=== PATIENT | female | born 1955 | race Caucasian/White ===

== ENCOUNTER → 2024-05-08 | Outpatient (CLI) | payer MEDICARE, BC ==
[2024-05-08 14:07] LABS: INR 0.9 (<1.2); Partial Thromboplastin Time 24.6 sec (22.0-30.0); Prothrombin Time 10.3 sec (10.0-12.5)
[2024-05-08 18:06] LABS: HCT 44.1 % (37.2-46.3); HGB 15.5 g/dL (12.0-15.0); MCH 30.7 pg (27.0-32.0); MCHC 35.1 g/dL (32.0-37.0); MCV 87.3 FL (80.0-97.0); Mean Platelet Volume 10.5 FL (9.5-12.2); NRBC Per 100 WBC 0 X 10*3/uL (0.00-0.01); Platelet Count 278 X 10*3/uL (140-440); RBC 5.05 X 10*6/uL (4.10-5.20); RDW 12.7 % (11.5-14.5); WBC 5.81 X 10*3/uL (4.50-10.00)
[2024-05-08 18:35] LABS: ALT 29 U/L (8-44); AST 26 U/L (13-35); Albumin/Globulin Ratio 2.17 Ratio (1.60-3.17); Alkaline Phosphatase 88 U/L (41-126); Calcium 10.7 mg/dL (8.7-10.3); Chloride 103 mmol/L (96-109); Globulin 2.3 g/dL (1.6-3.3); Glucose 126 mg/dL (70-110); Potassium 3.7 mmol/L (3.5-5.5); Sodium 142 mmol/L (135-145); Total Bilirubin 0.6 mg/dL (0.3-1.2); Total Protein 7.3 g/dL (6.2-8.2)
== END | disposition home or self-care (01) ==
LOC: LABPAT 12:55
PROVIDERS: ATTEND Orthopaedic Surgery
DX: Z01.818 Encounter for other preprocedural examination (principal); Z22.322 Carrier or suspected carrier of Methicillin resistant Staphylococcus aureus
CPT/HCPCS: 80053; 85027; 85610; 85730; 87070; 93005

== ENCOUNTER 2024-05-20 05:42 | Day surgery (SDC) | payer MEDICARE, BC ==
[~2024-05-20 05:42] MED LIST: HYDROmorphone 0.5 MG/0.5 ML SYRINGE IVP PRN; LIDOCAINE 1% (10MG/ML) FOR IV START INTRADERMA PRN; ONDANSETRON 4 MG/2 ML VIAL IVP PRN; TRANEXAMIC 1,000 MG/100ML-NACL 1,000 MG in SALINE 1 100ML.BAG IVPB PRN
[2024-05-20] MEDS: IV FLUID CONTINUATION 1,000 ML IV ONE ×2 (05:52→09:10)
[2024-05-20] MEDS: ACETAMINOPHEN TAB 500 MG TAB PO PRN (06:21)
[2024-05-20] MEDS: GABAPENTIN 300 MG CAP PO PRN (06:21)
[2024-05-20] MEDS: MELOXICAM 7.5 MG TAB PO PRN (06:21)
[2024-05-20] MEDS: DEXAMETHASONE SOD PHOSPHATE 4 MG/ML 1 ML VIAL IV ONE (06:22)
[2024-05-20] MEDS: ONDANSETRON 4 MG/2 ML VIAL IVP ONE (06:22)
[2024-05-20 06:24] LABS: Glucose,Whole Blood 148 mg/dL (70-110)
[2024-05-20] MEDS: LACTATED RINGERS 1,000 ML IV SCH (06:24)
[2024-05-20] MEDS: MIDAZOLAM 2 MG/2 ML VIAL IVP ONE (06:33)
[2024-05-20] MEDS ORDERED: TRANEXAMIC 1,000 MG/100ML-NACL PREMIX BAG ONE (06:53)
[2024-05-20] MEDS ORDERED: fentaNYL (PF) 50 MCG/ML 2 ML AMP ONE (06:53)
[2024-05-20] MEDS ORDERED: DEXAMETHASONE SOD PHOSPHATE 4 MG/ML 1 ML VIAL ONE (06:53)
[2024-05-20] MEDS ORDERED: PROPOFOL 10 MG/ML 20 ML VIAL IV ONE (06:53)
[2024-05-20] MEDS ORDERED: ROPIVACAINE 5 MG/ML 30 ML VIAL ONE (06:53)
[2024-05-20] MEDS ORDERED: PHENYLEPHRINE 10 MG/ML VIAL ONE (06:53)
[2024-05-20] MEDS ORDERED: MIDAZOLAM 2 MG/2 ML VIAL ONE (06:53)
[2024-05-20] MEDS: ceFAZolin 1,000 MG in SODIUM CHLORIDE 0.9% 1,000 ML IRRIGATION ONE (06:58)
--- NOTE | 2024-05-20 08:09 | P.OP ---
Date of Procedure: 05/20/24 Preoperative Diagnosis: Severe osteoarthritis right knee Postoperative Diagnosis: Severe osteoarthritis right knee Procedure(s) Performed: Right total knee arthroplasty Implants: Nelson & Nephew Journey II CR Oxinium cruciate retaining femoral component size 5, right Nelson [employer] Nephew Journey nonporous tibial baseplate size 3, right Nelson [employer] Nephew Journey II, XLPE Deep Dished articular insert, size 13 mm, Size 2-3, right Nelson [employer] Nephew Journey Mónica II resurfacing patellar component, oval, 29 mm All components were cemented using Palacos R bone cement The articulation is Oxinium on polyethylene Anesthesia: spinal Surgeon: Mike Carrington Thai Masseur #1: Abimbola Joseph Estimated Blood Loss (ml): 50 Pathology: none sent Condition: stable Disposition: PACU Indications for Procedure: The patient's knee is end-stage, and conservative management has failed. The operation of knee replacement has been discussed at length in the office, as well as potential risks and complications. These are inclusive of, but not limited to: Infection, bleeding, scarring, discomfort, stiffness, blood vessel and nerve damage, need for further surgery, failure to relieve symptoms, persistence, recurrence, or worsening of problems, loosening, dislocation, wear, blood clot, pulmonary embolism, , gait dysfunction, stiffness, and other risks as discussed in the office. Patient elects to proceed and the consent form has been signed. Operative Findings: The operative findings are consistent with severe osteoarthritis of the right knee Description of Procedure: The patient was seen in the preoperative area, the consent was reviewed and the operative site was marked with a skin marker. The patient verified the procedure and the operative site. An adductor canal pain catheter and an iPACK block were placed by anesthesia in the preoperative area. The patient was then brought to the operating room and positioned on the operating room table in the supine position. Preoperative antibiotics and a gram of tranexamic acid were given intravenously. A spinal anesthetic was administered by the anesthesia department. Care was taken to make sure that all pressure points were adequately padded. A tourniquet was placed on the upper thigh and the lower extremity was prepped with ChloraPrep and draped in usual sterile fashion. A universal time-out was then performed which confirmed the patient's name, surgical site, ALLERGIES, and consent. The lower extremity was then exsanguinated and tourniquet was inflated to 250 mmHg. A standard anterior midline approach to the knee was performed. The skin and subcutaneous tissue were sharply dissected down to the patellar tendon. A medial parapatellar arthrotomy was then performed. The knee was then extended, the patellar was everted, and the knee was flexed. The infra-patellar fat pad was removed in order to enhance exposure. The anterior horns of both menisci were excised, and a release was performed to the posterior medial aspect of the knee. On gross visual inspection, there was complete loss of articular cartilage in the medial and patellofemoral joint spaces. There was also significant cartilage damage in the lateral compartment. There were multiple periarticular osteophytes globally about the knee which were then removed with a Ronguer. The femoral canal was then opened with the 9.5 mm intramedullary drill. The 8 mm intramedullary marifer was then inserted into the femoral canal with the distal femoral cutting guide set for 5 of valgus. The distal femoral cutting block was then pinned in place. The intramedullary marifer was then removed, and the distal femur was then cut. The cutting block was then removed and the cut was checked for symmetry. The resected bone was then measured to confirm the appropriate distal femoral resection. Next, the sizing guide was then placed and set for 3 external rotation based off of the epicondylar axis and Republic's line. Pins were then placed and the drill holes, and the femur was sized with the sizing stylus. The pins were then removed, and the sizing guide was then removed. The spikes of the appropriate size femoral block was then placed into the predrilled holes, and malleted into place. Two 45 mm pins were then placed into the fixation holes on the cutting block. An kimberlee wing was then used to ensure there would be no notching with the anterior cut. The anterior condyles were cut without notching. The anterior chord cut was then performed, followed by the posterior cut, posterior chamfer cut, and the anterior chamfer cut. The collateral ligaments were protected during the entire process. The cutting block was then removed. Any remaining bone and osteophytes were removed from the femur with a Ronguer. Attention was then directed to the tibia. The remaining ACL was removed with a Ronguer, and the tibia was then gently subluxed forward with a large bent knee retractor. Any remaining menisci were excised. The posterior lateral corner was cauterized in order to coagulate the lateral geniculate artery. The extra medullary tibial cutting guide was then placed, set for the appropriate rotation, slope, and depth of resection. The proximal tibia cutting guide was then pinned in place. Proximal tibia was then cut and sized. A curved osteotome was then used to remove any posterior osteophytes from the distal femur. The femoral trial was placed. A narrow saw blade was then used to remove the anterior intracondylar femoral bone. The CR notch trial was then placed. The tibial trial was placed with the appropriate-sized insert. The knee was able to fully extend and flex to 130 and was stable throughout all range of motion. The knee was then extended and the patella was everted. Patella was then measured, and then using an osteotomy guide, the patella was cut at the appropriate level. The patellar component was sized. The patellar drill guide was placed and the patella was drilled. The patella trial was then placed. The knee was then taken through range of motion with the patella trial and the patella tracked normally using the no thumbs technique. The patella trial was then removed. The knee was then flexed and lug holes were drilled through the femoral trial and the femoral trial was then removed. The tibial was then re- exposed, and the tibial broach guide was then pinned in place after it was set for the appropriate rotation to allow for the most coverage without overhang. The tibia was then reamed and broached. The femoral canal was plugged with autologous bone. The cut surfaces of bone were then irrigated with pulsatile lavage. The knee was also irrigated with Irrisept solution. The components were then opened, the cement was mixed. Cement was placed on the backside of the femoral, tibial, and patellar components. Cement was then applied to the tibial surface and pressurized into the surface using finger pressurization technique. The tibial component was then applied and excess cement was removed after it was impacted securely noted to be flush with the cut surface. In similar fashion, the cement was applied to the cut femoral surface, pressurized and using finger pressurization the component was impacted in place. Excess cement was removed. The polyethylene spacer was then implanted and locked into position. Patellar component was then applied in a similar technique and the patellar clamp was used to hold patella in place while the cement hardened. The knee was held in full extension while the cement hardened. Once the cement had fully hardened, the knee was reinspected. Any other cement extrusion was removed the final range of motion testing showed range of motion from 0-130 with excellent stability, both medial and laterally and appropriate alignment of the leg. Patella tracked normally. After the cemented hardened, the tourniquet was released and hemostasis was obtained. A second gram of transexamic acid was given intravenously. The knee was again irrigated. The knee was again taken through range of motion and found to be stable throughout all range of motion of 0-130, and the patella tracked normally. The fascia was then closed with 0 Vicryl followed by #2 strata fix suture. The subcutaneous tissue was closed with 3-0 Vicryl and 3-0 strata fix. Exofin glue was used for the skin and placed with the knee in flexion. After the glue had dried, and Optafoam silver impregnated dressing was applied. A lightly compressive dressing was applied using web roll and Ray wrap. Patient was then transferred to the stretcher and taken to recovery room in stable condition. Sponge and needle counts were correct. The assistant football coach BRANDI Beaulieu was required due the complexity surgery and the need for a skilled surgical rn. She assisted in positioning, draping, retraction, and closure of the wound.
[2024-05-20] MEDS ORDERED: NA PHOS,M-B/NA PHOS,DI-BA 133 ML ENEMA RECTAL PRN (08:39)
[2024-05-20] MEDS ORDERED: NALOXONE 0.4 MG/ML 1 ML VIAL IV PRN (08:39)
[2024-05-20] MEDS ORDERED: ONDANSETRON 4 MG/2 ML VIAL IVP PRN (08:39)
[2024-05-20] MEDS ORDERED: HYDROmorphone 0.5 MG/0.5 ML SYRINGE IVP PRN ×2 (08:39)
[2024-05-20] MEDS ORDERED: MAGNESIUM HYDROXIDE 2,400 MG/30 ML CUP PO PRN (08:39)
[2024-05-20] MEDS ORDERED: bisacodyL 10 MG SUPP RECTAL PRN (08:39)
--- NOTE | 2024-05-20 09:11 | XR ---
EXAMINATION TYPE: XR knee limited RT DATE OF EXAM: 05/20/2024 CLINICAL HISTORY: Postoperative evaluation Two views of the right knee are submitted. Identified are changes of total knee arthroplasty with femoral and tibial components appearing well seated. Postsurgical soft tissue changes are noted. Alignment is anatomic.
[2024-05-20] MEDS: GLYCOPYRROLATE 0.2 MG/ML 2 ML VIAL IVP STA (09:12)
[2024-05-20] MEDS: ROPIVACAINE 1,100 MG, SODIUM CHLORIDE 0.9% 500 ML 330 ML, EMPTY PAIN BALL 1 EACH MISCELLANE PRN (09:14)
[2024-05-20] MEDS: HYDROmorphone 0.5 MG/0.5 ML SYRINGE IVP PRN (11:40)
--- NOTE | 2024-05-20 13:20 | P.ANPRN ---
Procedure Note - Anesthesia - Nerve Block Performed Right Adductor Canal Infusion Time Out Performed: Yes Date of Procedure: 05/20/24 Procedure Start Time: :32 Procedure Stop Time: :44 Location of Patient: PreOp Indication: Acute Post-Operative Pain, Requested by Surgeon Sedation Type: Sedate with meaningful contact maintained Preparation: Sterile Prep, Sterile Dressing Position: Supine Catheter: Indwelling Needle Types: Pajunk Needle Gauge: 21 Ultrasound used to visualize needle placement: Yes Ultrasound used to observe medication spread: Yes Blood Aspirated: No Pain Paresthesia on Injection Noted: No Resistance on Injection: Normal Image Stored and Saved: Yes Events: Uneventful and Well Tolerated (Ropivacaine 0.5% 20 cc plus dexamethasone 4 mg)
--- NOTE | 2024-05-20 13:21 | P.ANPRN ---
Procedure Note - Anesthesia - Nerve Block Performed Right Pujack Single Time Out Performed: Yes Date of Procedure: 05/20/24 Procedure Start Time: 06:45 Procedure Stop Time: 06:47 Location of Patient: PreOp (647) Indication: Acute Post-Operative Pain, Requested by Surgeon Sedation Type: Sedate with meaningful contact maintained Preparation: Sterile Prep Position: Supine Needle Types: Pajunk Needle Gauge: 21 Ultrasound used to visualize needle placement: Yes Ultrasound used to observe medication spread: Yes Blood Aspirated: No Pain Paresthesia on Injection Noted: No Resistance on Injection: Normal Image Stored and Saved: Yes Events: Uneventful and Well Tolerated (Ropivacaine 0.5% 25 cc plus dexamethasone 4 mg)
[2024-05-20] MEDS: SODIUM CHLORIDE 0.9% 1,000 ML IV SCH (14:47)
[2024-05-20] MEDS: HYDROcodone/APAP 7.5-325MG 1 EACH TAB PO PRN (16:21)
[2024-05-20 16:59] LABS: Glucose,Whole Blood 195 mg/dL (70-110)
[2024-05-20] MEDS ORDERED: CALCIUM CARBONATE 500 MG CHEWABLE PO PRN (17:12)
--- NOTE | 2024-05-20 17:12 | P.CONS ---
History of Present Illness - Reason for Consult Consult date: 05/20/24 Medical management Requesting physician: Mike Carrington - Chief Complaint Right knee surgery - History of Present Illness This is a pleasant 68-year-old patient who follows with Dr. Janelle Angel. Chronic stable medical conditions include diabetes, GERD, hypertension, rheumatoid arthritis. Patient is undergone right knee arthroplasty. Some pain at operative site. No nausea vomiting no chest pain. Review of systems: GEN.: None EYES: None HEENT: None NECK: None RESPIRATORY: None CARDIOVASCULAR: None GASTROINTESTINAL: Occasional constipation GENITOURINARY: None MUSCULOSKELETAL: [Joint pains LYMPHATICS: None HEMATOLOGICAL: None PSYCHIATRY: None NEUROLOGICAL: None Social history: Does not smoke. Alcohol rarely. Physical examination: VITAL SIGNS: 97.9, 75, 18, 130/76, 98% room air GENERAL: BMI 30.6,. Reclining in bed comfortable EYES: Pupils equal. Conjunctiva shelly l. HEENT: External appearance of nose and ears normal, oral cavity grossly normal. NECK: JVD not raised; masses not palpable. HEART: First and second heart sounds are normal; no edema. LUNGS: Respiratory rate normal; clear to auscultation. ABDOMEN: Soft, nontender, liver spleen not palpable, no masses palpable. PSYCH: Alert and oriented x3; mood and affect shelly l. MUSCULOSKELETAL:No Clubbing/cyanosis;muscles-grossly intact. Dressing over the right knee. Evidence of OA NEUROLOGICAL: Cranial nerves grossly intact; no facial asymmetry, power and sensation grossly intact. LYMPHATICS: No lymph nodes palpable in the axilla and neck INVESTIGATIONS, reviewed in the clinical context: May 08: White count 5.8 hemoglobin 15.5 platelets 278 potassium 3.7 BUN 12 creatinine 0.6 Assessment plan: -Right total knee arthroplasty Aspirin for DVT prophylaxis. IV cefazolin for infection prophylaxis pain control -GERD PPI -Rheumatoid arthritis Hydrochloric when -Essential hypertension Amlodipine 10 mg a day enalapril 10 mg a day -Primary osteoarthritis Pain control as needed Obesity BMI 30.6 Weight loss measures Care was discussed with patient. Questions answered. Thank Dr. Carrington Past Medical History Past Medical History: Diabetes Mellitus, GERD/Reflux, Hypertension, Osteoarthritis (OA), Rheumatoid Arthritis (RA) History of Any Multi-Drug Resistant Organisms: None Reported Past Surgical History: Breast Surgery, Cholecystectomy, Hysterectomy, Orthopedic Surgery Additional Past Surgical History / Comment(s): lft knee scope for bone chipped, biopsy lft breast Past Anesthesia/Blood Transfusion Reactions: No Reported Reaction Additional Psychological History / Comment(s): nervous about surgery Smoking Status: Never smoker Past Alcohol Use History: Rare Past Drug Use History: None Reported - Past Family History Sister(s) Family Medical History: Cancer Additional Family Medical History / Comment(s): breast Mother Family Medical History: Cancer Additional Family Medical History / Comment(s): outside of colon Medications and Allergies Home Medications Medication Instructions Recorded Confirmed Type Acetaminophen [Tylenol Arthritis] 650 - 1,300 mg PO BID 05/15/24 05/20/24 History Calcium Carbonate [Tums] 500 mg PO DAILY PRN 05/15/24 05/15/24 History Calcium Carbonate/Vitamin D3 1 each PO DAILY 05/15/24 05/15/24 History [Calcium 250-D Tablet] Empagliflozin [Jardiance] 10 mg PO DAILY 05/15/24 05/20/24 History Enalapril Maleate 10 mg PO DAILY 05/15/24 05/15/24 History Glucosimine (Unk) 1 tab PO DAILY 05/15/24 05/15/24 History Hydroxychloroquine Sulfate 200 mg PO Q48H 05/15/24 05/20/24 History Hydroxychloroquine Sulfate 400 mg PO Q48H 05/15/24 05/20/24 History L.acidoph,Paracasei, B.lactis 1 tab PO DAILY 05/15/24 05/15/24 History [Probiotic] Latanoprost Ophth [Xalatan 0.005%] 1 drop BOTH EYES HS 05/15/24 05/20/24 History Loratadine-Pseudoeph 10-240 mg 1 tab PO DAILY 05/15/24 05/20/24 History [Claritin-D 24 Hour] Multivitamins, Thera [Multivitamin 1 tab PO DAILY 05/15/24 05/15/24 History (formulary)] Omeprazole 20 mg PO DAILY 05/15/24 05/20/24 History Vit C(Unk) 1,000 mg PO DAILY 05/15/24 05/15/24 History amLODIPine BESYLATE 10 mg PO DAILY 05/15/24 05/15/24 History guaiFENesin-DM 600/30MG [Mucinex 1 tab PO DAILY 05/15/24 05/20/24 History Dm] Aspirin 325 mg PO BID #60 tab 05/20/24 Rx HYDROcodone/APAP 7.5-325MG [Shirley 1 - 2 tab PO Q6H PRN #32 tab 05/20/24 Rx 7.5-325] Sennosides [Senokot] 2 tab PO DAILY PRN #60 tablet 05/20/24 Rx Allergies Allergy/AdvReac Type Severity Reaction Status Date / Time Sulfa (Sulfonamide Allergy Rash/Hives Verified 05/20/24 05:58 Antibiotics) codeine AdvReac Vomiting Verified 05/20/24 05:58 Physical Exam Vitals: Vital Signs Temp Pulse Resp BP Pulse Ox 05/20/24 14:30 97.9 F 75 18 134/76 98 05/20/24 14:00 82 11 L 125/58 95 05/20/24 13:30 67 2 L 118/58 95 05/20/24 13:00 82 14 115/59 94 L 05/20/24 12:30 73 14 113/56 94 L 05/20/24 12:00 81 14 124/58 97 05/20/24 11:30 86 16 115/56 97 05/20/24 11:04 73 18 134/69 97 05/20/24 10:49 78 14 136/63 98 05/20/24 10:34 79 14 119/59 98 05/20/24 10:19 73 12 99 05/20/24 10:04 79 14 126/60 98 05/20/24 09:49 80 14 129/60 96 05/20/24 09:34 86 14 130/60 95 05/20/24 09:19 89 16 125/60 94 L 05/20/24 09:04 41 L 12 105/59 96 05/20/24 08:49 62 11 L 126/62 100 05/20/24 08:34 96.8 F L 72 12 131/67 97 05/20/24 06:50 75 18 136/63 96 05/20/24 06:03 98 F 87 18 161/75 100 Intake and Output 05/20/24 05/20/24 05/20/24 06:59 14:59 22:59 Intake Total 751 350 Output Total 200 Balance 751 150 Intake: IV 751 350 Output: Urine 150 Estimated Blood Loss 50 Other: Weight 71 kg 71 kg Results Labs: Abnormal Lab Results - Last 24 Hours (Table) 05/20/24 05/20/24 Range/Units 06:16 16:58 POC Glucose (mg/dL) 148 H 195 H (70-110) mg/dL
[2024-05-20 20:27] LABS: Glucose,Whole Blood 192 mg/dL (70-110)
[2024-05-20] MEDS: SENNOSIDES-DOCUSATE SODIUM 1 EACH TAB PO SCH (20:37)
[2024-05-20] MEDS: ASPIRIN 325 MG TAB PO SCH (20:37)
[2024-05-20] MEDS: LATANOPROST 0.005% OPHTH DROPS 2.5 ML BTL BOTH EYES SCH (20:42)
[2024-05-21 05:57] LABS: Glucose,Whole Blood 136 mg/dL (70-110)
[2024-05-21] MEDS: HYDROcodone/APAP 7.5-325MG 1 EACH TAB PO PRN (06:29)
--- NOTE | 2024-05-21 07:50 | P.PN ---
Progress Note - Text Progress Note Date: 05/21/24 Anesthesiology Postop day 1 status post total knee arthroplasty with adductor canal catheter. Patient doing well. VAS 4 out of 10. Gross strength intact in lower extremity. Afebrile. Denies alterations in sensorium. Catheter site intact. Heart regular rate Lungs nonlabored Abdomen nondistended Assessment: Postop day 1 status post total knee arthroplasty with adductor canal catheter Plan: 1.All questions answered. Maintain catheter 2 more days with patient removal at home. Instructions to be given at discharge. 2.This note was dictated using Vant[employer] software. Please be advised there is a potential for misspellings or errors in grid inspector.
[2024-05-21 07:51] VITALS: BP 151/73; PULSE 59; RESP 16; TEMP 98.1
[2024-05-21 08:28] LABS: Basophils # (A) 0.02 X 10*3/uL (0.00-0.10); Basophils % (A) 0.2 %; Eosinophils # (A) 0.01 X 10*3/uL (0.04-0.35); Eosinophils % (A) 0.1 %; Lymphocytes # (A) 1.17 X 10*3/uL (0.90-5.00); Lymphocytes % (A) 9.5 %; MCH 30.3 pg (27.0-32.0); MCHC 33.3 g/dL (32.0-37.0); MCV 90.9 FL (80.0-97.0); Monocytes # (A) 1.08 X 10*3/uL (0.20-1.00); Monocytes % (A) 8.8 %; NRBC Per 100 WBC 0 X 10*3/uL (0.00-0.01); Neutrophils # (A) 9.95 X 10*3/uL (1.80-7.70); Neutrophils % (A) 80.8 %; Platelet Count 275 X 10*3/uL (140-440); RBC 3.96 X 10*6/uL (4.10-5.20); RDW 12.5 % (11.5-14.5)
[2024-05-21] MEDS: MULTIVITAMINS, THERA 1 EACH TAB PO SCH (08:49)
[2024-05-21] MEDS: DAPAGLIFLOZIN PROPANEDIOL 5 MG TABLET PO SCH (08:49)
[2024-05-21] MEDS: CALCIUM CARB-VIT D 500 MG-5 MCG TAB PO SCH (08:49)
[2024-05-21] MEDS: PANTOPRAZOLE 40 MG TABLET PO SCH (08:49)
[2024-05-21] MEDS: ASCORBIC ACID 500 MG TAB PO SCH (08:49)
[2024-05-21] MEDS: HYDROXYCHLOROQUINE SULFATE 200 MG TAB PO SCH (08:50)
[2024-05-21] MEDS: LACTOBACILLUS ACIDOPHILUS/PECT 1 EACH CAPSULE PO SCH (08:50)
[2024-05-21] MEDS: amLODIPine 10 MG TAB PO SCH (08:50)
[2024-05-21] MEDS: LORATADINE-PSEUDOEPH 5-120 MG 1 EACH TAB.ER.12H PO SCH (10:37)
--- NOTE | 2024-05-21 11:17 | P.DS ---
Providers Expected date of discharge: 05/21/24 Attending physician: Mike Carrington Consults: 05/20/24 08:39 Consult Physician Routine Consulting Provider: Blake Polk Consult Reason/Comments: medical management Do you want consulting provider notified?: Yes Primary care physician: Red Felix - Discharge Diagnosis(es) (1) S/P total knee arthroplasty Current Visit: Yes Status: Acute (2) Osteoarthritis of right knee Current Visit: Yes Status: Acute Hospital Course: This is a 68-year-old female with known history of degenerative arthritis of the right knee. The patient presented for evaluation as an outpatient. After discussion and consideration patient elects to proceed with total knee arthroplasty. The patient is seen preoperatively by Dr. Carrington and medically cleared for surgery by their primary care physician. Patient is admitted to [facility] on 05/20/2024 for total knee arthroplasty. The procedure is performed without complication or sequelae. The patient is doing well postoperatively. Labs and vital signs are stable on day of discharge. On day of discharge patient's knee incision is healing well. There is minimal erythema. There is no drainage noted at this time. There is minimal soft tissue swelling to the knee. Patient has full foot and ankle motion without difficulty or pain. Calf is soft and nontender to palpation. Neurovascular status to the right lower extremity is intact. Patient is discharged home in good condition. Please see med rec for accurate list of home medications. Plan - Discharge Summary Discharge Rx Participant: Yes New Discharge Prescriptions: New Aspirin 325 mg PO BID #60 tab HYDROcodone/APAP 7.5-325MG [[place] 7.5-325] 1 - 2 tab PO Q6H PRN #32 tab PRN Reason: Pain Sennosides [Senokot] 2 tab PO DAILY PRN #60 tablet PRN Reason: Constipation Continue amLODIPine BESYLATE 10 mg PO DAILY Multivitamins, Thera [Multivitamin (formulary)] 1 tab PO DAILY Glucosimine (Unk) 1 tab PO DAILY Calcium Carbonate/Vitamin D3 [Calcium 250-D Tablet] 1 each PO DAILY Acetaminophen [Tylenol Arthritis] 650 - 1,300 mg PO BID Calcium Carbonate [Tums] 500 mg PO DAILY PRN PRN Reason: gerd Omeprazole 20 mg PO DAILY Latanoprost Ophth [Xalatan 0.005%] 1 drop BOTH EYES HS L.acidoph,Paracasei, B.lactis [Probiotic] 1 tab PO DAILY Hydroxychloroquine Sulfate 200 mg PO Q48H Hydroxychloroquine Sulfate 400 mg PO Q48H Enalapril Maleate 10 mg PO DAILY Empagliflozin [Jardiance] 10 mg PO DAILY Discontinued guaiFENesin-DM 600/30MG [Mucinex Dm] 1 tab PO DAILY Loratadine-Pseudoeph 10-240 mg [Claritin-D 24 Hour] 1 tab PO DAILY No Action Vit C(Unk) 1,000 mg PO DAILY Discharge Medication List Acetaminophen [Tylenol Arthritis] 650 - 1,300 mg PO BID 05/15/24 [History] Calcium Carbonate [Tums] 500 mg PO DAILY PRN 05/15/24 [History] Calcium Carbonate/Vitamin D3 [Calcium 250-D Tablet] 1 each PO DAILY 05/15/24 [History] Empagliflozin [Jardiance] 10 mg PO DAILY 05/15/24 [History] Enalapril Maleate 10 mg PO DAILY 05/15/24 [History] Glucosimine (Unk) 1 tab PO DAILY 05/15/24 [History] Hydroxychloroquine Sulfate 200 mg PO Q48H 05/15/24 [History] Hydroxychloroquine Sulfate 400 mg PO Q48H 05/15/24 [History] L.acidoph,Paracasei, B.lactis [Probiotic] 1 tab PO DAILY 05/15/24 [History] Latanoprost Ophth [Xalatan 0.005%] 1 drop BOTH EYES HS 05/15/24 [History] Multivitamins, Thera [Multivitamin (formulary)] 1 tab PO DAILY 05/15/24 [History] Omeprazole 20 mg PO DAILY 05/15/24 [History] Vit C(Unk) 1,000 mg PO DAILY 05/15/24 [History] amLODIPine BESYLATE 10 mg PO DAILY 05/15/24 [History] Aspirin 325 mg PO BID #60 tab 05/20/24 [Rx] HYDROcodone/APAP 7.5-325MG [[place] 7.5-325] 1 - 2 tab PO Q6H PRN #32 tab 05/20/24 [Rx] Sennosides [Senokot] 2 tab PO DAILY PRN #60 tablet 05/20/24 [Rx] Follow up Appointment(s)/Referral(s): [facility] [NON-STAFF] - As Needed (Continuous Passive Motion knee machine) [facility] [NON-STAFF] - As Needed Mike Carrington DO [Doctor of Osteopathic Medicine] - 06/03/24 1:00 pm Activity/Diet/Wound Care/Special Instructions: Weightbearing as tolerated with a walker. CPM 5-6h daily as tolerated. Leave dressing intact. Dressing may be removed by home care nurse or by patient in 7 days. Then change dressing twice daily until follow up. May shower with initial dressing intact and after removal. If dressing become saturated, please remove. Recommend use of compression stockings daily until follow up to help prevent swelling and blood clots. May remove at night before sleeping. Please take aspirin 325mg twice daily for 30 days to prevent blood clots. Please follow up with [facility] and call with any questions or concerns, . Discharge Disposition: HOME WITH HOME HEALTH SERVICES
--- NOTE | 2024-05-21 18:09 | P.PN ---
Progress Note - Text Progress Note Date: 05/21/24 - Chief Complaint Right knee surgery - History of Present Illness This is a pleasant 68-year-old patient who follows with Dr. Janelle Angel. Chronic stable medical conditions include diabetes, GERD, hypertension, rheumatoid arthritis. Patient is undergone right knee arthroplasty. Some pain at operative site. No nausea vomiting no chest pain. May 21: Doing better. Pain controlled. Tolerating diet. No new issues. Social history: Does not smoke. Alcohol rarely. Physical examination: VITAL SIGNS: 98.1, 59, 16, 151 x 73, 97% room air GENERAL:, Comfortable EYES: Pupils equal. Conjunctiva shelly l. HEENT: External appearance of nose and ears normal, oral cavity grossly normal. NECK: JVD not raised; masses not palpable. HEART: First and second heart sounds are normal; no edema. LUNGS: Respiratory rate normal; clear to auscultation. ABDOMEN: Soft, nontender, liver spleen not palpable, no masses palpable. PSYCH: Alert and oriented x3; mood and affect shelly l. MUSCULOSKELETAL:No Clubbing/cyanosis;muscles-grossly intact. Dressing over the right knee. Evidence of OA INVESTIGATIONS, reviewed in the clinical context: May 21: White count 12.3 hemoglobin 12 platelets 275 May 08: White count 5.8 hemoglobin 15.5 platelets 278 potassium 3.7 BUN 12 creatinine 0.6 Assessment plan: -Right total knee arthroplasty Aspirin for DVT prophylaxis. IV cefazolin for infection prophylaxis pain control -Leukocytosis reactionary to surgery. No clinical evidence of infection. No urinary or respiratory symptoms. -GERD PPI -Rheumatoid arthritis Hydrochloroquin -Essential hypertension Amlodipine 10 mg a day enalapril 10 mg a day -Primary osteoarthritis Pain control as needed Obesity BMI 30.6 Weight loss measures Discussed. Follow-up with PCP. Thank Dr. Carrington Past Medical History Past Medical History: Diabetes Mellitus, GERD/Reflux, Hypertension, Osteoarthritis (OA), Rheumatoid Arthritis (RA) History of Any Multi-Drug Resistant Organisms: None Reported Past Surgical History: Breast Surgery, Cholecystectomy, Hysterectomy, Orthopedic Surgery Additional Past Surgical History / Comment(s): lft knee scope for bone chipped, biopsy lft breast Past Anesthesia/Blood Transfusion Reactions: No Reported Reaction Additional Psychological History / Comment(s): nervous about surgery Smoking Status: Never smoker Past Alcohol Use History: Rare Past Drug Use History: None Reported
[2024-05-22] MEDS ORDERED: HYDROXYCHLOROQUINE SULFATE 200 MG TAB PO SCH (09:00)
== END 2024-05-21 12:59 | disposition home health service (06) ==
LOC: OR 05:42 → 4SSUR 08:32 → OR 05-21 12:59
PROVIDERS: ATTEND Orthopaedic Surgery
DX: M17.11 Unilateral primary osteoarthritis, right knee (principal); E11.9 Type 2 diabetes mellitus without complications; E66.9 Obesity, unspecified; G89.18 Other acute postprocedural pain; D72.829 Elevated white blood cell count, unspecified; I10 Essential (primary) hypertension; K21.9 Gastro-esophageal reflux disease without esophagitis; M06.9 Rheumatoid arthritis, unspecified; Z68.30 Body mass index [BMI] 30.0-30.9, adult; Z79.82 Long term (current) use of aspirin; Z79.84 Long term (current) use of oral hypoglycemic drugs; Z88.1 Allergy status to other antibiotic agents; Z88.2 Allergy status to sulfonamides; Z88.5 Allergy status to narcotic agent; Z79.899 Other long term (current) drug therapy; Z90.49 Acquired absence of other specified parts of digestive tract; Z90.710 Acquired absence of both cervix and uterus
CPT/HCPCS: 27447; 97161; 64999; 64448; 85025; 73560; C1713; C1776; C1751; J2250; J1100; J0690 ×2; J2405; J3010; J2795; J2704; J1170; J2371